=== PATIENT | female | born 1980 | race Caucasian/White ===

== ENCOUNTER 2020-11-04 13:34 | Outpatient (RCR) | payer OTHER, SELFPAY | END 2020-11-28 09:34 | disposition home or self-care (01) | LOC: HO.PHPA 13:34 | PROVIDERS: PCP Internal Medicine; Visit Provider Psychiatry & Neurology Psychiatry | DX: F32.9 Major depressive disorder, single episode, unspecified (principal); F42.9 Obsessive-compulsive disorder, unspecified ==

== ENCOUNTER 2020-12-19 09:00 | Outpatient (RCR) | payer OTHER, SELFPAY ==
[2020-12-02 13:24] VITALS: BMI 26.5
--- NOTE | 2020-12-02 13:51 | P.HPPSP_ITS ---
HPI Chief Complaint: OCD, Depression Sources of Information: patient interviewed and chart reviewed HPI Subjective Notes: [place] Warning Guardianship: No Medical Problems Affecting Mental Status: No Narrative: Alis is a 40-year-old single female who was self- referred to [facility] due to worsening depression and anxiety. Patient also was recently diagnosed with OCD. 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 she also has difficulties with her current relationship of 16 years, and describes herself as codependent. She reports that she has had this underlying anxiety and depression for years . She states though that recently it has got an really bad , and that she is seeking further treatment in order to help alleviate symptoms. She does report anhedonia, lack of motivation, fatigue, tearfulness. She reports that she feels hopeless and helpless. She does report some passive SI, denies any type of plan or intent. Denies any type of history of SI attempts. She describes elevation of symptoms during college, this also coincides with Geno's diagnosis. Patient is currently taking levothyroxine. She reports an escalation in OCD type symptoms along with anxiety during and afterward. Current medications include sertraline 200 mg daily, which was started in mid to late August. She also takes Abilify 5 mg daily which was started approximately 1 month ago. Patient also takes levothyroxine 100 micro g daily, as well as vitamins and vitamin-D. She lives with her partner of 16 years and their 5-month-old daughter. She describes a supportive home. She grew up with her parents until the age of [age], when they . She says that she spent half of her time with each parent. She does have an older brother and a younger half-sister from mother's 2nd marriage. She reports a good relationship with her mother and stepfather, and has recently started speaking with her father daily. Developmental milestones were met without incident. She graduated high school, and attended college and graduate school. She has a master's in social work and is employed full-time. Past Psychiatric History: She has engaged in therapy 3 previous times. She has been working with current provider since November 2019. she denies any history of inpatient level of care, detox, partial, etc. She endorses a longstanding history of trichotillomania. She states that she pulls out hairs on her face, and that she finds this anxiety reducing. She is currently being prescribed medications by her primary care physician, who has agreed to provide bridge Scripts while she is looking for a psych prescriber. Patient has also been referred to [facility]. she states that she has attended [facility] meetings for several months, but recently stopped. Patient was encouraged by this check writer salesperson to reconsider attending. She was agreeable, and stated that she would consider it, once she has completed this program. Medical Evaluation Reviewed: No ( physician records not yet available.) outpatient records have been requested. Patient has history of Geno's thyroiditis, is stable with levothyroxine. [facility] Medical History Adenomyosis Asthma Geno's thyroiditis Trichotillomania Uterine cyst Surgical History Hx of tonsillectomy Family History: Patient reports anxiety, depression, and alcoholism in family. Social History: Lives with his partner of 16 years and their 5-month-old child. Reports supportive home, as well as good relationship with mother and stepfather, and her own father. Substance History: Experimented with hallucinogens once 10 years ago. History of using marijuana 2 times, with last use 2 years ago. No other substances reported. Trauma History: Patient does endorse a trauma history, did not provide any Information regarding type, etc. Diagnostics Vital Signs (24Hr): Body Mass Index 26.5 Meds/Allergies Meds Narrative: Patient was started on sertraline in August of this year. Patient also started on Abilify, approximately 1 month ago. Allergies Allergies Allergy/AdvReac Type Severity Reaction Status Date / Time amoxicillin Allergy Hives Verified 12/02/20 13:24 Mental Status Exam Mental Status Exam Narrative: Well-nourished, well-developed female, appears stated age. No overt distress, although did appear anxious and tearful at times. Patient Appearance: Well Grooomed and Appropriate Patient Orientation: Person, Place, Time and Situation Level of Consciousness: Awake, Appropriate and Alert Patient Behavior: Appropriate, Cooperative, Anxious, Good Eye Contact and Crying ( Tearful at times during the encounter.) Mood Description: Depressed and Anxious Affect Description: Depressed and Anxious Patient Cognition Impaired: No Ability to Follow Directions: Excellent Speech Pattern: Clear, Appropriate and Spontaneous Speech Memory Description: Intact Hallucinations: None Delusions: Not Present Thought Process: Intact Thought Content: positive for Intact and positive for Obsessional Thoughts ( Obsessional thoughts reported and noted regarding relationship, and her inability to act like an adult emotionally whenever conflict arises. Expressed concern regarding relationship and that her behavior may cause it to end.) Depressive Symptoms: Increased Anxiety, Crying Spells, Feelings of Worthlessnes s, Hopelessness, Feelings of Guilt, Thoughts of /Suicide ( Passive, fleeting, no plan or intent.) and Low Self Esteem Judgement: Good Judgement and Insight: Overall judgment and insight appear intact. No safety concerns, for patient or infant. Assessment & Plan Assessment & Plan (1) MDD (major depressive disorder), recurrent episode, severe: Status: Acute Code(s): F33.2 - Major depressive disorder, recurrent severe without psychotic features Assessment and Plan: Patient displays symptoms major depressive disorder, and also self reports longstanding history of this. She was started on sertraline medication several months ago. Dose is currently sertraline 200 mg daily. Plan: Continue sertraline at current dose. Provided resources regarding [employer] Women's Psychiatric [facility] website, with multiple resources for woman with mood disorders and OCD. (2) OCD (obsessive compulsive disorder): Status: Acute Code(s): F42.9 - Obsessive-compulsive disorder, unspecified Assessment and Plan: Patient recently diagnosed with OCD. Reports obsessional thoughts regarding relationship and codependency. Longstanding history of trichotillomania. She is currently receiving Abilify 5 mg daily, along with sertraline, to assist with major depressive disorder as well as OCD. We discussed medication doses each, and possibility of adding clomipramine as an adjunctive therapy if patient does not achieve some relief with other medications currently ordered. Plan: Continue current medications, with no changes. Will follow next week, sooner if needed. No script refills needed at this time. Certification I certify that partial hospital treatment is medically necessary due to the symptoms and problems resulting from the patient's mental illness and the failure to treat the patient at the partial hospital level of care would likely result in the patient requiring inpatient psychiatric care which could not be prevented at a less intensive level of care. Telehealth Telehealth Location of provider rendering services: practice address Location of patient: address on file Patient Identification confirmed using: Name, : Yes Telehealth method: video Patient verbally consented to treatment: Yes Patient verbally consented to billing insurance company: Yes Patient informed of any privacy concerns related to visit: Yes Time spent with patient (mins): 45
--- NOTE | 2020-12-02 13:59 | PC.ADMIT ---
Patient is a 40 year old female who self referred to the [facility] PHP d/t struggling with increased depression and anxiety and new diagnosis of relationship OCD . Patient gave to her daughter 5 months ago and is experiencing on-going fear that she will lose her family. She feels her life has become increasingly stressful. 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 Patient is unsure if the baby's increased her current symptoms. Stated she started therapy when she found out she was . Patient also reports symptoms of trichotillomania. Reports pulling out her eyelashes, eyebrows and hairs on her face. Feeling fatigued all the time and lack of motivation. Patient also reports having tantrums describing crying episodes and increased talking episodes. Reports she has been in a relationship with her partner for 15 years and needs constant reassurance in the relationship or obsessively apologizes for her behavior. Patient presents with depressed mood anxious affect. Reports appetite has decreased when stressed. Decreased sleep. Denied current SI. Patient gave verbal permission to email her a copy of her safety plan. Patient has the crisis number if needed. Medications reconciled with patient and patient's pharmacy. Patient reports she has been taking medications as prescribed.
--- NOTE | 2020-12-11 13:58 | HO.PHPPROGNO ---
Subjective Subjective Date of Service: 12/11/20 Reason For Visit: OCD, Depression Subjective Notes: [place] Warning Guardianship: No Medical Problems Affecting Mental Status: No Interim History: Alis Reports that she feels I am overall improved, was less mood swings, less extreme, but they are still there . She reports that she has not really noticed impact of sertraline yet. She is currently receiving Abilify and sertraline. She feels that these medications are adequate right now, and believes the Abilify is helping to manage impulsive decisions. She is not interested in changing, adding, either medications or any doses at this time. We did discuss breast feeding and use of these medications. We discussed possibility of checking thyroid function and labs, as these can also play a role in mood disorders. We also discussed obtaining EKG in order to monitor QTC interval. Patient states that she feels safe, and has no safety concerns. She reports she does not need any medication refills at this time. Medication Compliance: Yes Side effects from medications: No Attending Groups: Yes Review of Systems Review of Systems A full review of systems was completed and was negative with the exception of pertinent positives noted in history of the presenting illness. Yes all other systems are reviewed and are negative Mental Status Exam Mental Status Exam Narrative: Well-nourished, well-developed female, in no apparent distress. Sitting on couch during encounter, holding infant. She did appear tired, and was caring for who was crying at 1st. Patient Appearance: Well Grooomed, Fatigued and Appropriate Patient Orientation: Person, Place, Time and Situation Level of Consciousness: Awake, Appropriate and Alert Patient Behavior: Appropriate and Cooperative Mood Description: Appropriate, Depressed and Anxious Affect Description: Appropriate, Depressed and Anxious Patient Cognition Impaired: No Ability to Follow Directions: Excellent Speech Pattern: Clear Memory Description: Intact Delusions: Not Present Thought Process: Intact, Goal Oriented and Linear Thought Content: positive for Intact and positive for Logical Depressive Symptoms: Increased Anxiety and Increased Fatigue Judgement: Good Diagnostics Vital Signs (24Hr): Body Mass Index 26.5 Assessment & Plan Assessment & Plan (1) OCD (obsessive compulsive disorder): Status: Acute Code(s): F42.9 - Obsessive-compulsive disorder, unspecified Assessment and Plan: Patient currently taking sertraline 200 mg daily along with Abilify 5 mg. wishing to remain on these medications with current doses for now. No refills needed at this time. (2) MDD (major depressive disorder), recurrent episode, severe: Status: Acute Code(s): F33.2 - Major depressive disorder, recurrent severe without psychotic features Assessment and Plan: Patient remaining on sertraline 200 mg daily with Abilify 5 mg daily. PLAN: Labs ordered including Chem profile, TSH. EKG ordered. Follow-up in 1 week, sooner if needed. Certification I certify that partial hospital treatment is medically necessary due to the symptoms and problems resulting from the patient's mental illness and the failure to treat the patient at the partial hospital level of care would likely result in the patient requiring inpatient psychiatric care which could not be prevented at a less intensive level of care. Greater than 50% of the session was spent on counseling and/or coordination of care Discharge Plan Discharge Attending provider: Pato Broderick Medications: No Action sertraline 100 mg Tablet 200 mg PO DAILY RF: 0 levothyroxine 100 mcg Tablet 100 mcg PO DAILY RF: 0 albuterol sulfate 90 mcg/actuation Hfa Aerosol Inhaler 2 puff INHALATION Q6H PRN (Reason: Shortness Of Breath) RF: 0 aripiprazole [Abilify] 5 mg Tablet 5 mg PO DAILY RF: 0 Vitamin Tablet 1 tab PO DAILY RF: 0 Stand Alone Forms: Patient Portal Discharge page Telehealth Telehealth Location of provider rendering services: practice address Location of patient: address on file Patient Identification confirmed using: Name, : Yes Telehealth method: video Patient verbally consented to treatment: Yes Patient verbally consented to billing insurance company: Yes Patient informed of any privacy concerns related to visit: Yes Time spent with patient (mins): 15
--- NOTE | 2020-12-18 11:54 | HO.PHPPROGNO ---
Subjective Subjective Date of Service: 12/18/20 Reason For Visit: OCD, Depression Subjective Notes: [place] Warning Guardianship: No Medical Problems Affecting Mental Status: No Interim History: Alis reports that overall she has noticed an improvement in her OCD and depression symptoms, especially since she has started the Abilify. she has been referred to a provider through [facility], and will be following up with that person. She is content with current medication doses, and does not wish to make any changes. She feels hopeful for the future, and feels that overall her symptoms have improved, with participation in this program. No safety concerns. She reports that her primary care physician can provide refills, and she is not requesting any at this time. Medication Compliance: Yes Side effects from medications: No Attending Groups: Yes Review of Systems Review of Systems Review of systems completed and there are no concerns. Yes all other systems are reviewed and are negative Mental Status Exam Mental Status Exam Narrative: Well-developed, well-nourished female, in no apparent distress. Fully alert and oriented, fully conversant during encounter. Patient Appearance: Well Grooomed and Appropriate Patient Orientation: Person, Place, Time and Situation Level of Consciousness: Awake, Appropriate and Alert Patient Behavior: Appropriate, Cooperative and Good Eye Contact Mood Description: Calm and Appropriate Affect Description: Appropriate and Anxious ( Slight anxiety noted.) Patient Cognition Impaired: No Ability to Follow Directions: Excellent Speech Pattern: Clear, Appropriate, Spontaneous Speech and Coherent Memory Description: Intact Hallucinations: None Delusions: Not Present Thought Process: Intact, Goal Oriented and Linear Thought Content: positive for Intact, positive for Goal Oriented and positive for Linear Depressive Symptoms: Increased Anxiety ( Slight anxiety continues, however has improved overall.) Judgement: Good Diagnostics Vital Signs (24Hr): Body Mass Index 26.5 Assessment & Plan Assessment & Plan (1) OCD (obsessive compulsive disorder): Qualifiers: Obsessive-compulsive disorder type: unspecified Qualified Code(s): F42.9 - Obsessive-compulsive disorder, unspecified Status: Acute Code(s): F42.9 - Obsessive-compulsive disorder, unspecified Assessment and Plan: Patient reports OCD symptoms as somewhat improved. (2) MDD (major depressive disorder), recurrent episode, severe: Qualifiers: Psychotic features: without psychotic features Qualified Code(s): F33.2 - Major depressive disorder, recurrent severe without psychotic features Status: Acute Code(s): F33.2 - Major depressive disorder, recurrent severe without psychotic features Assessment and Plan: Patient reports that current medications appropriate, helping to manage both depression and OCD symptoms. Does not have any safety concerns, feels stable for discharge from [facility]. She does not require any refills at this time, no safety concerns. Patient educated on: diagnosis, medication risk/benefits and therapeutic strategies Reason for contiued partial hosp. stay Substantial Risk for: stable for discharge Certification I certify that partial hospital treatment is medically necessary due to the symptoms and problems resulting from the patient's mental illness and the failure to treat the patient at the partial hospital level of care would likely result in the patient requiring inpatient psychiatric care which could not be prevented at a less intensive level of care. Greater than 50% of the session was spent on counseling and/or coordination of care Discharge Plan Discharge Attending provider: Pato Broderick Medications: No Action sertraline 100 mg Tablet 200 mg PO DAILY RF: 0 levothyroxine 100 mcg Tablet 100 mcg PO DAILY RF: 0 albuterol sulfate 90 mcg/actuation Hfa Aerosol Inhaler 2 puff INHALATION Q6H PRN (Reason: Shortness Of Breath) RF: 0 aripiprazole [Abilify] 5 mg Tablet 5 mg PO DAILY RF: 0 Vitamin Tablet 1 tab PO DAILY RF: 0 Stand Alone Forms: Patient Portal Discharge page Telehealth Telehealth Location of provider rendering services: practice address Location of patient: address on file Patient Identification confirmed using: Name, : Yes Telehealth method: video Patient verbally consented to treatment: Yes Patient verbally consented to billing insurance company: Yes Patient informed of any privacy concerns related to visit: Yes Time spent with patient (mins): 15
--- NOTE | 2020-12-19 14:21 | PC.NURSE ---
Called and left message with Sheryl Carmona PHD re clients completion of PHP
--- NOTE | 2020-12-19 14:29 | PC.NURSE ---
Patient discharge 12/19/2020. Medication appointment with Luna Kim APRN today. Discharge medications reviewed with patient. No safety concerns.
== END 2020-12-22 07:53 | disposition home or self-care (01) ==
LOC: HO.PHPA 09:00
PROVIDERS: Visit Provider Psychiatry & Neurology Psychiatry
DX: F33.2 Major depressive disorder, recurrent severe without psychotic features (principal); F42.9 Obsessive-compulsive disorder, unspecified; Z79.899 Other long term (current) drug therapy
CPT/HCPCS: 90791; 90853